=== PATIENT | female | born 1935 | race Caucasian/White ===

== ENCOUNTER 2019-05-08 21:23 | Inpatient (IN) | payer MEDICARE ==
[~2019-05-08] VITALS: Ht 147.3 cm; Wt 49.4 kg
--- NOTE | 2019-05-08 21:45 | NUR ---
PT BIB [facility] WITH A C/O AMS. PT IS AA&O BUT REFUSING CARE. PT'S FAMILY STATED THAT THIS IS UNUSUAL FOR THE PT. PT HAS A RUC PORT. ACCESSED BY ED, RN. NO BLOOD RETURN. LAB AT BEDSIDE FOR BLOOD DRAW. PT IS ON THE MONITOR AND CONTINUOUS PULSE OX.
[2019-05-08] MEDS ORDERED: ONE A DAY VITAMIN PO (21:46)
[2019-05-08] MEDS ORDERED: MINO100T PO (21:46)
[2019-05-08] MEDS ORDERED: FERR325T23 PO (21:46)
[2019-05-08] MEDS ORDERED: MAGN400T8 PO (21:46)
[2019-05-08] MEDS ORDERED: METF500S7 PO (21:46)
[2019-05-08] MEDS ORDERED: CIPR-262 PO (21:54)
[2019-05-08] MEDS ORDERED: PREG100C PO (21:54)
[2019-05-08] MEDS ORDERED: MYRBETRIQ PO (21:54)
[2019-05-08] MEDS ORDERED: DIPH-916 PO (21:54)
[2019-05-08] MEDS ORDERED: ASPI81TA44 PO (21:54)
[2019-05-08] MEDS ORDERED: VITAMIN D2 PO (21:54)
[2019-05-08] MEDS ORDERED: BISA-79 PO (21:54)
[2019-05-08] MEDS ORDERED: HYDR-4384 PO (21:54)
[2019-05-08 22:19] LABS: BASOPHILS # (AUTO) 0.2 /CMM (0.0-0.2); BASOPHILS % (AUTO) 0.8 % (0.0-2.0); EOSINOPHILS % (AUTO) 0.7 % (0.0-6.0); HEMATOCRIT 41 % (33-45); HEMOGLOBIN 12.7 g/dL (11.5-14.8); LYMPHOCYTES # (AUTO) 16.5 /CMM (0.8-4.8); MEAN CORPUSCULAR HGB CONC 31 g/dl (31.0-36.0); MEAN CORPUSCULAR VOLUME 88 fL (82-100); MONOCYTES # (AUTO) 0.9 /CMM (0.1-1.30); MONOCYTES % (AUTO) 3.4 % (2.0-12.0); NEUTROPHILS # (AUTO) 10.1 /CMM (1.8-8.9); NEUTROPHILS % (AUTO) 36.1 % (43.0-81.0); PLATELET COUNT (AUTO) 278 /CMM (150-450); RED BLOOD CELL COUNT(AUTO) 4.61 MIL/uL (4.0-5.2)
--- NOTE | 2019-05-08 22:26 | NUR ---
PT LEFT FOR CT VIA GURNEY.
[2019-05-08] MEDS ORDERED: LORAZEPAM INJ 2 MG/ML VIAL IV ONE (22:30)
[2019-05-08 22:44] LABS: CALCIUM, SERUM 9.8 mg/dL (8.5-10.1); CARBON DIOXIDE 31 mmol/L (21-32); CHLORIDE 104 mmol/L (98-107); CREATININE 0.9 mg/dL (0.6-1.3); GLUCOSE 135 mg/dL (74-106); POTASSIUM 5.2 mmol/L (3.5-5.1); SODIUM SERUM 142 mmol/L (136-145); UREA NITROGEN, BLOOD 15 mg/dL (7-18)
--- NOTE | 2019-05-08 22:45 | NUR ---
PT RETURNED FROM CT.
[2019-05-08 22:47] LABS: ALANINE AMINOTRANSFERASE 9 U/L (12-78); ALBUMIN 2.9 g/dL (3.4-5.0); ALKALINE PHOSPHATASE 125 U/L (46-116); ASPARTATE AMINOTRANSFERASE 14 U/L (15-37); BILIRUBIN,DIRECT 0.1 mg/dL (0.0-0.2); BILIRUBIN,TOTAL 0.4 mg/dL (0.2-1.0); TOTAL PROTEIN, SERUM 6.6 g/dL (6.4-8.2)
[2019-05-08] MEDS ORDERED: PIPERACILLIN /TAZOBACTAM 3.375 G in IV D5W 50 ML IV ONE (23:00)
[2019-05-08] MEDS ORDERED: VANCOMYCIN 1 GM in IV D5W 250 ML IV ONE (23:00)
--- NOTE | 2019-05-08 23:00 | NUR ---
IN AND OUT CATH DONE AT THE BEDSIDE.
[2019-05-08] MEDS ORDERED: VANCOMYCIN 1 GM VIAL ONE (23:32)
[2019-05-08] MEDS ORDERED: PIPERACILLIN /TAZOBACTAM 3.375 G VIAL IV ONE (23:32)
[2019-05-08 23:41] LABS: APPEARANCE,URINE Cloudy (CLEAR); BILIRUBIN,URINE Negative (NEGATIVE); BLOOD, URINE Small Ery/uL (NEGATIVE); COLOR,URINE Yellow (YELLOW); KETONES,URINE Negative (NEGATIVE); LEUKOCYTE ESTERASE ,URINE Large (NEGATIVE); NITRITE, URINE Negative (NEGATIVE); PH,URINE 7.5 (5.0-8.0); PROTEIN,URINE Trace mg/dl (NEGATIVE); UGLUCOSE Negative (NEGATIVE); UROBILINOGEN,URINE 0.2 EU/dL (0.2)
[2019-05-08 23:51] LABS: BACTERIA,URINE 3+ /HPF (None Seen); SQUAMOUS EPITHELIAL CELL,UR Few /HPF (None Seen); WBC,URINE 81-100 /HPF (0-3)
--- NOTE | 2019-05-09 00:25 | NUR ---
VANCO WAS ACCIDENTALLY DROPPED AND THE MEDICATION GLASS BOTTLE BROKE. NO ABLE TO USE MEDICATION. VANCO 1GM WASTED AND NEW VANCO 1GM PULLED.
[2019-05-09] MEDS ORDERED: VANCOMYCIN 1 GM VIAL ONE (00:26)
[2019-05-09] MEDS ORDERED: IV NS 0.9% 1,000 ML IV PRN (00:29)
[2019-05-09] MEDS ORDERED: DEXTROSE 50%-WATER 50 ML DISP.SYRIN IV PRN (00:30)
[2019-05-09] MEDS ORDERED: ONDANSETRON HCL/PF 4 MG/2 ML VIAL IVP PRN (00:30)
[2019-05-09] MEDS ORDERED: ACETAMINOPHEN 325 MG TABLET PO PRN (00:30)
[2019-05-09] MEDS ORDERED: MAGNESIUM HYDROXIDE 30 ML UDC PO PRN (00:30)
[2019-05-09] MEDS ORDERED: Z GUARD REMEDY 2 OZ OINT TP PRN (00:30)
[2019-05-09] MEDS ORDERED: MAG HYDROX/AL HYDROX/SIMETH 30 ML UDC PO PRN (00:30)
--- NOTE | 2019-05-09 00:36 | NUR ---
CALLED NURSING JUNIOR ADMINISTRATIVE ASSISTANT FOR M/S BED.
--- NOTE | 2019-05-09 00:59 | NUR ---
PT IS MS GOING TO 328-1
--- NOTE | 2019-05-09 01:00 | NUR ---
CALLING REPORT TO ALEX WRIGHT
--- NOTE | 2019-05-09 01:15 | NUR ---
MS ALARM FIELD TECHNICIAN INITIAL NOTES ADMIT PT FROM ER VIA GURNEY ACCOMPANIED BY ER NURSE AND TECH. PT IS AWAKE AND ALERT , LUXEMBOURGISH SPEAKING BUT UNDERSTOOD AND SPEAK SOME ARMENIAN. STILL WITH VANCOMYCIN INFUSING , NO SIGNS OF ANY ADVERSE REACTION NOTED. DENIES ANY PAIN OR ANY DISCOMFORT. INFORMATION PROVIDED BY HER DAUGHTER AUDELIA. PER HER DAUGHTER THEY JUST NOTICED GET CONFUSED AND DEHYDRATED. DX OF UTI. ASSESSMENT DONE AND RECORDED.ORIENTED PT WHERE SHE AT AND HOW TO USE THE CALL LIGHT SYSTEM. BED IN LOW AND LOCK IN POSITION WITH SIDE RAILS X2 UP AND BED ALARM SET FOR PT SAFETY. WILL CONTINUE MONITORING. DAUGHTER AT THE BEDSIDE FOR A WHILE.
[2019-05-09 01:18] VITALS: BP 138/99
[2019-05-09 02:05] VITALS: BP 138/99
--- NOTE | 2019-05-09 02:23 | NUR ---
MS MARLY NOTES BENADRYL PO GIVEN TO RELIEVED PT ITCHINESS. SAFETY PRECAUTION IMPLEMENTED. EDUCATE DAUGHTER AND PT REGARDING POSSIBLE SIDE EFFECT AND DAUGHTER UNDERSTOOD WELL. WILL CONTINUE MONITORING. PLACE CALL LIGHT AT REACH.
[2019-05-09] MEDS ORDERED: CEFTRIAXONE 1 G VIAL ONE (02:26)
[2019-05-09] MEDS ORDERED: diphenhydrAMINE HCL 25 MG CAPSULE PO PRN (02:30)
[2019-05-09] MEDS: CEFTRIAXONE 1 G in IV D5W 50 ML IV SCH (03:03)
--- NOTE | 2019-05-09 07:55 | NUR ---
ms security incident response specialist closing notes pt sleeping comfortably in bed without any distress noted. IVF still infusing , no redness noted. slept well after benadryl given and itchy relieved as well. no signs of any distress noted. kept her warm and comfortable at all times. bed alarm set for safety. place call light at reach. endorse to am nurse Rosales for continuity of care.
[2019-05-09 08:00] VITALS: BP 150/80
[2019-05-09] MEDS: BLOOD SUGAR DIAGNOSTIC 1 EACH STRIP IN SCH ×4 (08:27→21:56)
[2019-05-09] MEDS ORDERED: Medication Not On Formulary EA ([Myrbetriq] 50 MG) PO SCH (09:00)
--- NOTE | 2019-05-09 10:28 | NUR ---
WOUND CARE CONSULT: PT FOLLOWED BY PLASTIC SURGERY TEAM FOR WOUND CARE. DEFER TO SURGICAL TEAM FOR WOUND TREATMENT PLAN. DISCUSSED SKIN PROTECTION WITH NURSING STAFF. WILL SEE PRN. CURRENT KEELY SCORE IS 15.
[2019-05-09] MEDS: FERROUS SULFATE (325 MG) 325 MG/TAB TABLET PO SCH ×2 (10:30→19:04)
[2019-05-09] MEDS: PREGABALIN 100 MG CAPSULE PO SCH ×2 (10:30→19:04)
[2019-05-09] MEDS: MAGNESIUM OXIDE 400 MG TABLET PO SCH (10:30)
[2019-05-09] MEDS: MULTIVITAMINS,THERAGRAN 1 UDTAB TABLET PO SCH (10:30)
[2019-05-09] MEDS: ASPIRIN EC 81 MG TABLET.DR PO SCH (10:32)
[2019-05-09] MEDS: IV D5/0.45 NACL 1,000 ML IV PRN (12:29)
[2019-05-09 16:00] VITALS: BP 126/64
--- NOTE | 2019-05-09 18:00 | NUR ---
oziel hunter ehs specialist here and debridement of thigh and sacral areas.pt. tolerated well.dr. muniz changed iv to dextrose as pt. was not eating in am.also texted md and made him aware of elevated potassium from 05/08/19.states he will check it out.family at bedside most of day.iv site rt. chest functioning well.
--- NOTE | 2019-05-09 19:45 | NUR ---
ms igor initial notes pt awake and alert lying in bed without any distress noted. she's watching TV at the same time talking to her son. IVF still infusing. kept her warm and comfortable at all times . will continue monitoring. place call light at reach.
[2019-05-09 20:00] VITALS: BP 118/64
[2019-05-09] MEDS ORDERED: SODIUM POLYSTYRENE SULFONATE 15 G/60 ML BOTTLE PO ONE (20:00)
--- NOTE | 2019-05-09 21:50 | NUR ---
ms financial reporting manager notes norco tablet po given as ordered per patient requested. will continue monitoring.
[2019-05-09] MEDS: HYDROCODONE/APAP 5/325MG 1 EACH TABLET PO PRN (21:56)
[2019-05-09] MEDS: INSULIN REGULAR, HUMAN 100 UNIT/ML 3 ML VIAL SQ PRN (22:03)
[2019-05-10] MEDS: IV D5/0.45 NACL 1,000 ML IV PRN ×2 (02:10→23:00)
[2019-05-10] MEDS: CEFTRIAXONE 1 G in IV D5W 50 ML IV SCH (02:35)
[2019-05-10] MEDS: BLOOD SUGAR DIAGNOSTIC 1 EACH STRIP IN SCH ×4 (07:00→22:27)
[2019-05-10] MEDS: INSULIN REGULAR, HUMAN 100 UNIT/ML 3 ML VIAL SQ PRN ×4 (07:03→22:43)
--- NOTE | 2019-05-10 07:33 | NUR ---
MS RUBBER COMPOUNDER MIXER CLOSING NOTES PT AWAKE AND ALERT MORNING CARE DONE WELL WOUND CARE TREATMENT. BLOOD SUGAR 98 NO INSULIN DUE AT THIS TIME. NO SIGNS OF ANY DISCOMFORT NOTED . ALL DUE MEDS GIVEN AND ALL NEEDS MET KEPT HER WARM AND COMFORTABLE AT ALL TIMES. ENDORSE TO AM NURSE SANTO FOR CONTINUITY OF CARE. PLACE CALL LIGHT AT REACH.
[2019-05-10 07:40] LABS: BASOPHILS # (AUTO) 0.1 /CMM (0.0-0.2); BASOPHILS % (AUTO) 0.2 % (0.0-2.0); EOSINOPHILS % (AUTO) 0.8 % (0.0-6.0); HEMATOCRIT 39 % (33-45); HEMOGLOBIN 12.1 g/dL (11.5-14.8); LYMPHOCYTES # (AUTO) 19.8 /CMM (0.8-4.8); LYMPHOCYTES % (AUTO) 69.8 % (20.0-44.0); MEAN CORPUSCULAR HGB CONC 31 g/dl (31.0-36.0); MEAN CORPUSCULAR VOLUME 88 fL (82-100); MONOCYTES # (AUTO) 1.1 /CMM (0.1-1.30); MONOCYTES % (AUTO) 3.9 % (2.0-12.0); NEUTROPHILS # (AUTO) 7.2 /CMM (1.8-8.9); NEUTROPHILS % (AUTO) 25.3 % (43.0-81.0); PLATELET COUNT (AUTO) 252 /CMM (150-450); RED BLOOD CELL COUNT(AUTO) 4.41 MIL/uL (4.0-5.2); WHITE BLOOD COUNT (AUTO) 28.4 K/uL (4.3-11.0)
[2019-05-10 07:44] LABS: CALCIUM, SERUM 9.5 mg/dL (8.5-10.1); CREATININE 0.7 mg/dL (0.6-1.3); MAGNESIUM 1.4 mg/dL (1.8-2.4); PHOSPHORUS 3.5 mg/dL (2.5-4.9); POTASSIUM 4.3 mmol/L (3.5-5.1)
--- NOTE | 2019-05-10 07:45 | NUR ---
MS/RN Opening note Patient received resting in bed, A/O x2 showing no signs of acute distress or SOB, saturating 95% on RA. IV line is clean and intact. No complaints of pain at this time. Patient is on diaper and bedrest. Bed is in lowest position, side rails x3 in upright position, fall and aspiration precautions enforced. Will continue with plan of care.
[2019-05-10 07:54] LABS: THYROID STIMULATING HORMONE 0.323 uIU/mL (0.358-3.74)
[2019-05-10 08:46] VITALS: BP 147/77
[2019-05-10] MEDS: FERROUS SULFATE (325 MG) 325 MG/TAB TABLET PO SCH ×2 (09:01→17:25)
[2019-05-10] MEDS: ASPIRIN EC 81 MG TABLET.DR PO SCH (09:01)
[2019-05-10] MEDS: MAGNESIUM OXIDE 400 MG TABLET PO SCH (09:01)
[2019-05-10] MEDS: MULTIVITAMINS,THERAGRAN 1 UDTAB TABLET PO SCH (09:01)
[2019-05-10] MEDS: PREGABALIN 100 MG CAPSULE PO SCH ×2 (09:01→17:25)
[2019-05-10] MEDS: Magnesium 1GM/D5W 100ML PREMIX 100 ML IV SCH ×4 (10:28→13:49)
--- NOTE | 2019-05-10 14:00 | NUR ---
MS/RN note S/B PT, patient ok to ambuate to bathroom with assistance. Wound dressing changed with Ashley today as ordered.
[2019-05-10 15:58] VITALS: BP 93/49
[2019-05-10] MEDS: HYDROCODONE/APAP 5/325MG 1 EACH TABLET PO PRN (18:06)
[2019-05-10 20:00] VITALS: BP 101/42
--- NOTE | 2019-05-10 20:00 | NUR ---
MS LUKE INITIAL NOTES RECEIVED REPORT FROM AM NURSE AND SEEN PT IN BED AWAKE AND ALERT WATCHING TV AT THIS TIME.
--- NOTE | 2019-05-10 20:29 | NUR ---
MS/RN Closing note Patient received is in bed, A/O x2 showing no signs of acute distress or SOB, saturating 95% on RA. IV line is clean and intact. No complaints of pain at this time. Patient has bedside commode and can ambulate with assistance. All patient needs met, all due meds given, patient kept clean and dry throughout shift. Bed is in lowest position, side rails x3 in upright position, fall and aspiration precautions enforced. Will endorse to sole leveler machine.
--- NOTE | 2019-05-11 | NUR ---
ms awning maker and installer notes pt sleeping comfortably in bed without any distress noted. IVF still infusing.
[2019-05-11] MEDS: CEFTRIAXONE 1 G in IV D5W 50 ML IV SCH (02:14)
[2019-05-11] MEDS: BLOOD SUGAR DIAGNOSTIC 1 EACH STRIP IN SCH ×4 (07:30→21:28)
--- NOTE | 2019-05-11 07:47 | NUR ---
ms cylindrical mixer closing notes pt back to rest after morning care done. stable hema the night and slept well. no signs of any distress noted. all due meds given and all needs met. kept her warm and comfortable at all times. place call light at reach. endorse to am nurse for continuity of care.
--- NOTE | 2019-05-11 07:48 | NUR ---
MS/RN Opening note Patient received resting in bed, A/O x2 showing no signs of acute distress or SOB, saturating 95% on RA. Portacath noted on the right upper chest running D5 1/2@75ml/hr. No complaints of pain at this time. Patient is able to use the bedside commode with assistance. Bed is in lowest position, side rails x3 in upright position, fall and aspiration precautions enforced. Will continue with plan of care.
[2019-05-11] MEDS: PREGABALIN 100 MG CAPSULE PO SCH ×2 (09:03→17:36)
[2019-05-11] MEDS: MULTIVITAMINS,THERAGRAN 1 UDTAB TABLET PO SCH (09:03)
[2019-05-11] MEDS: MAGNESIUM OXIDE 400 MG TABLET PO SCH (09:03)
[2019-05-11] MEDS: ASPIRIN EC 81 MG TABLET.DR PO SCH (09:03)
[2019-05-11] MEDS: FERROUS SULFATE (325 MG) 325 MG/TAB TABLET PO SCH ×2 (09:03→17:36)
[2019-05-11] MEDS: INSULIN REGULAR, HUMAN 100 UNIT/ML 3 ML VIAL SQ PRN ×2 (09:08→17:45)
[2019-05-11 10:02] VITALS: BP 131/69
[2019-05-11] MEDS: HYDROCODONE/APAP 5/325MG 1 EACH TABLET PO PRN (10:57)
--- NOTE | 2019-05-11 12:00 | NUR ---
MS/RN BLOOD SUGAR 114. NO COVERAGE AT THIS TIME
[2019-05-11 15:13] LABS: CALCIUM, SERUM 9.3 mg/dL (8.5-10.1); CREATININE 0.9 mg/dL (0.6-1.3); MAGNESIUM 2.1 mg/dL (1.8-2.4); POTASSIUM 4.5 mmol/L (3.5-5.1)
[2019-05-11 16:28] VITALS: BP 118/80
--- NOTE | 2019-05-11 19:20 | NUR ---
MS RN OPENING NOTES: RECEIVED PATIENT RESTING IN BED, A/O X4. NO COMPLAIN OF PAIN. NOT IN RESPIRATORY DISTRESS. CALL LIGHT WITHIN REACH. BED ALARM ON. BED IN LOWEST AND LOCKED POSITION. BILATERAL HEELS OFFLOADED WITH PILLOW. HOB ELEVATED AT 30 DEGREES.
[2019-05-11 20:00] VITALS: BP 127/72
--- NOTE | 2019-05-11 20:32 | NUR ---
MS/RN Closing note Patient received resting in bed, A/O x2 showing no signs of acute distress or SOB, saturating 95% on RA. Portacath noted on the right upper chest running D5 1/2@75ml/hr. No complaints of pain at this time. Patient is able to use the bedside commode with assistance. All patient needs met, all due meds given. Bed is in lowest position, side rails x3 in upright position, fall and aspiration precautions enforced. Will continue with plan of care.
[2019-05-11 20:34] VITALS: BP 127/72
[2019-05-11 21:09] LABS: BASOPHILS # (AUTO) 0.1 /CMM (0.0-0.2); BASOPHILS % (AUTO) 0.3 % (0.0-2.0); EOSINOPHILS % (AUTO) 1.2 % (0.0-6.0); HEMATOCRIT 37 % (33-45); HEMOGLOBIN 11.4 g/dL (11.5-14.8); LYMPHOCYTES # (AUTO) 20.5 /CMM (0.8-4.8); LYMPHOCYTES % (AUTO) 67.3 % (20.0-44.0); MEAN CORPUSCULAR HGB CONC 31 g/dl (31.0-36.0); MEAN CORPUSCULAR VOLUME 88 fL (82-100); MONOCYTES # (AUTO) 0.9 /CMM (0.1-1.30); MONOCYTES % (AUTO) 3.1 % (2.0-12.0); NEUTROPHILS # (AUTO) 8.5 /CMM (1.8-8.9); NEUTROPHILS % (AUTO) 28.1 % (43.0-81.0); PLATELET COUNT (AUTO) 236 /CMM (150-450); RED BLOOD CELL COUNT(AUTO) 4.18 MIL/uL (4.0-5.2)
[2019-05-11 21:12] LABS: WHITE BLOOD COUNT (AUTO) 30.4 K/uL (4.3-11.0)
--- NOTE | 2019-05-11 21:29 | NUR ---
BLOOD SUGAR FINGERSTICK IS 94.NO INSULIN GIVEN.
--- NOTE | 2019-05-11 21:31 | NUR ---
RECEIVED A CRITICAL CALL FROM LAB FOR A CRITICAL RESULTS OF WBC=30.4, KENJI TRACEY AWARE, SHE SAID THAT KEYBOARDING CLERK BREN ALREADY PAGED BY OTHER RN, WAITING FOR THE RESPONSE. SON OF THE PATIENT AT THE BEDSIDE.
[2019-05-11 21:40] LABS: LYMPHOCYTES % (MANUAL) 70 % (16-48); MONOCYTES % (MANUAL) 1 % (0-11.0); NEUTROPHILS % (MANUAL) 29 (42-76)
--- NOTE | 2019-05-11 22:00 | NUR ---
HERMES CORREIA CAME AND INFORMED THE CRITICAL RESULTS OF WBC, NO ORDERS MADE.
[2019-05-12] MEDS: CEFTRIAXONE 1 G in IV D5W 50 ML IV SCH (02:12)
--- NOTE | 2019-05-12 04:31 | NUR ---
PATIENT REFUSED DRESSINGS CHANGED ON THE LEFT HIP AND LEFT THIGH AT THIS TIME. PATIENT WANTS IT AFTER BREAKFAST, SUPPLIES- NS FLUSHES, GAUZE, AND IODOFORM PACKING STRIPS, AND MEPILEX DRESSING ARE GATHERED AT THE BEDSIDE. WILL ENDORSE TO THE NEXT SHIFT RN.
--- NOTE | 2019-05-12 05:46 | NUR ---
MS RN CLOSING NOTES: PATIENT IN BED. ASLEEP, EASILY AROUSABLE. VITALS STABLE. PATIENT'S SON CAME TO VISIT LAST NIGHT. PATIENT IS MORE ALERT AND ORIENTED ACCORDING TO THE SON. RESTED THROUGHOUT THE NIGHT. TYLENOL GIVEN PO FOR RIGHT SHOULDER DISCOMFORT. ENCOURAGED TO FREQ SELF REPOSITION IN BED. CALL LIGHT WITHIN REACH. BED ALARM ON. BED IN LOWEST AND LOCKED POSITION. HEELS OFFLOADED. HOB ELEVATED. AFEBRILE. LEFT HIP AND LEFT THIGH DRESSINGS WILL BE CHANGED AFTER BREAKFAST TODAY PER PATIENT'S REQUEST, SUPPLIES AT THE BEDSIDE, WILL ENDORSE.
[2019-05-12] MEDS: INSULIN REGULAR, HUMAN 100 UNIT/ML 3 ML VIAL SQ PRN ×2 (06:53→18:48)
[2019-05-12 08:00] VITALS: BP 107/60
--- NOTE | 2019-05-12 08:00 | NUR ---
MS RN OPENING NOTES: RECEIVED PATIENT RESTING IN BED, A/O X4. NO COMPLAIN OF PAIN. NOT IN RESPIRATORY DISTRESS. WITH IVF D51/2 NS AT 75 ML/HR INFUSING WELL. CALL LIGHT WITHIN REACH. BED ALARM ON. BED IN LOWEST AND LOCKED POSITION. BILATERAL HEELS OFFLOADED WITH PILLOW. HOB ELEVATED AT 30 DEGREES.
[2019-05-12 08:06] LABS: IMMUNOGLOBULIN A, SERUM 66 mg/dL (64-422); IMMUNOGLOBULIN G, SERUM 684 mg/dL (700-1600); IMMUNOGLOBULIN M, SERUM 13 mg/dL (26-217)
[2019-05-12] MEDS: BLOOD SUGAR DIAGNOSTIC 1 EACH STRIP IN SCH ×4 (08:51→21:40)
[2019-05-12] MEDS ORDERED: PIPERACILLIN /TAZOBACTAM 3.375 G in IV D5W 50 ML IV ONE ×2 (09:00→11:30)
[2019-05-12] MEDS: MAGNESIUM OXIDE 400 MG TABLET PO SCH (09:09)
[2019-05-12] MEDS: ASPIRIN EC 81 MG TABLET.DR PO SCH (09:09)
[2019-05-12] MEDS: PREGABALIN 100 MG CAPSULE PO SCH ×2 (09:09→18:46)
[2019-05-12] MEDS: FERROUS SULFATE (325 MG) 325 MG/TAB TABLET PO SCH ×2 (09:09→18:46)
[2019-05-12] MEDS: MULTIVITAMINS,THERAGRAN 1 UDTAB TABLET PO SCH (09:09)
[2019-05-12] MEDS: IV D5/0.45 NACL 1,000 ML IV PRN (12:16)
--- NOTE | 2019-05-12 12:52 | NUR ---
BS 135=REFUSED LUNCH AND INSULIN
[2019-05-12] MEDS ORDERED: PIPERACILLIN /TAZOBACTAM 3.375 G in IV D5W 100 ML IV SCH (13:00)
[2019-05-12] MEDS: HYDROCODONE/APAP 5/325MG 1 EACH TABLET PO PRN (14:22)
[2019-05-12 16:00] VITALS: BP 116/57
[2019-05-12] MEDS: PIPERACILLIN /TAZOBACTAM 3.375 G in IV D5W 100 ML IV SCH (18:45)
[2019-05-12 20:00] VITALS: BP 118/65
[2019-05-13] MEDS: PIPERACILLIN /TAZOBACTAM 3.375 G in IV D5W 100 ML IV SCH ×3 (00:55→17:11)
--- NOTE | 2019-05-13 06:38 | NUR ---
MS RN NOTES AWAKE & RESPONSIVE. NOT IN ANY DISTRESS. NO SOB NOTED. DENIES ANY PAIN OR DISCOMFORT AT THIS TIME. WITH IVF INFUSING WELL. AM CARE DONE. MONITORED ACCORDINGLY. CALL LIGHT WITHIN REACH. BED IN LOWEST POSITION. SR UP X 2 WITH BED ALARM ON FOR SAFETY. WILL ENDORSE TO NEXT SHIFT.
[2019-05-13] MEDS: BLOOD SUGAR DIAGNOSTIC 1 EACH STRIP IN SCH ×4 (06:56→22:03)
--- NOTE | 2019-05-13 07:30 | NUR ---
MS/RN Patient received Patient received from ammonia refrigeration worker. A/O X3, vital signs within normal range for patient, appears in no distress or discomfort at this time. IV fluids continue to infuse via portacth. All questions and concerns addressed. Will continue to monitor and ensure safety.
[2019-05-13 08:00] VITALS: BP 136/72
[2019-05-13 08:14] LABS: BASOPHILS # (AUTO) 0.3 /CMM (0.0-0.2); BASOPHILS % (AUTO) 1.2 % (0.0-2.0); HEMATOCRIT 35 % (33-45); HEMOGLOBIN 10.9 g/dL (11.5-14.8); LYMPHOCYTES # (AUTO) 16.3 /CMM (0.8-4.8); LYMPHOCYTES % (AUTO) 62.8 % (20.0-44.0); MEAN CORPUSCULAR HGB CONC 31 g/dl (31.0-36.0); MEAN CORPUSCULAR VOLUME 88 fL (82-100); MONOCYTES # (AUTO) 0.9 /CMM (0.1-1.30); MONOCYTES % (AUTO) 3.5 % (2.0-12.0); NEUTROPHILS # (AUTO) 8.2 /CMM (1.8-8.9); NEUTROPHILS % (AUTO) 31.5 % (43.0-81.0); PLATELET COUNT (AUTO) 197 /CMM (150-450); RED BLOOD CELL COUNT(AUTO) 3.99 MIL/uL (4.0-5.2); WHITE BLOOD COUNT (AUTO) 25.9 K/uL (4.3-11.0)
[2019-05-13 08:25] LABS: CALCIUM, SERUM 9.5 mg/dL (8.5-10.1); CREATININE 0.8 mg/dL (0.6-1.3); POTASSIUM 4.4 mmol/L (3.5-5.1)
[2019-05-13] MEDS: PREGABALIN 100 MG CAPSULE PO SCH ×2 (08:31→17:10)
[2019-05-13] MEDS: MAGNESIUM OXIDE 400 MG TABLET PO SCH (08:31)
[2019-05-13] MEDS: FERROUS SULFATE (325 MG) 325 MG/TAB TABLET PO SCH ×2 (08:31→17:11)
[2019-05-13] MEDS: ASPIRIN EC 81 MG TABLET.DR PO SCH (08:32)
[2019-05-13] MEDS: MULTIVITAMINS,THERAGRAN 1 UDTAB TABLET PO SCH (08:32)
[2019-05-13] MEDS: HYDROCODONE/APAP 5/325MG 1 EACH TABLET PO PRN ×2 (09:01→17:11)
--- NOTE | 2019-05-13 09:04 | NUR ---
MS/RN Pain Complaining of generalized body pain and requesting norco. One tablet administered as ordered.
--- NOTE | 2019-05-13 10:30 | NUR ---
MS/RN Labs Morning labs reviewed: WBC 25.9 Although value elevated, continues to trend down.
[2019-05-13] MEDS: INSULIN REGULAR, HUMAN 100 UNIT/ML 3 ML VIAL SQ PRN (12:13)
[2019-05-13 16:00] VITALS: BP 101/44
--- NOTE | 2019-05-13 17:10 | NUR ---
MS/RN Pain Complaining of generalized pain 11/01. [place] one tablet administered as ordered.
--- NOTE | 2019-05-13 18:11 | NUR ---
MS/RN End note Patient remains in stable condition. IVAB infusing via portacath to right chest wall. No further complaints of pain. Call light within reach, will endorse to maintenance supervisor 2nd shift.
[2019-05-13 20:00] VITALS: BP 124/75
--- NOTE | 2019-05-13 22:00 | NUR ---
MS RN NOTES BS CHECKED 155. PT REFUSED INSULIN COVERAGE AT THIS TIME. EXPLAINED TO PT IMPORTANCE OF INSULIN IN HER POC BUT PT STILL REFUSED. WILL CONTINUE TO MONITOR.
[2019-05-14] MEDS: PIPERACILLIN /TAZOBACTAM 3.375 G in IV D5W 100 ML IV SCH ×2 (01:15→08:40)
[2019-05-14] MEDS: BLOOD SUGAR DIAGNOSTIC 1 EACH STRIP IN SCH ×2 (06:22→12:03)
--- NOTE | 2019-05-14 06:49 | NUR ---
MS RN NOTES AWAKE & RESPONSIVE. NOT IN ANY DISTRESS. NO SOB NOTED. DENIES ANY PAIN OR DISCOMFORT AT THIS TIME. WITH IVF INFUSING WELL. AM CARE DONE. MONITORED ACCORDINGLY. CALL LIGHT WITHIN REACH. BED IN LOWEST POSITION. SR UP X 3 WITH BED ALARM ON FOR SAFETY. WILL ENDORSE TO NEXT SHIFT.
--- NOTE | 2019-05-14 07:26 | NUR ---
MS ALEX NOTES UNABLE TO TAKE PICTURES LAST NIGHT. PICTURES WILL BE TAKEN BY KRISTINE JOHNSON. ENDORSED ACCORDINGLY.
--- NOTE | 2019-05-14 07:30 | NUR ---
MS RN NOTES RECEIVED PATIENT IN BED RESTING COMFORTABLY IN MODERATE HIGH BACK REST, A/O X3. NO SIGNS OF DISTRESS NOTED AT THIS TIME. NO SOB NOTED. DENIES ANY PAIN OR DISCOMFORT AT THIS TIME. WITH IVF INFUSING WELL. SAFETY MEASURES IN PLACE, CALL LIGHT WITHIN REACH. BED IN LOWEST POSITION. SR UP X 3 WITH BED ALARM ON FOR SAFETY. WILL CONTINUE TO MONITOR.
[2019-05-14 07:55] LABS: BASOPHILS % (AUTO) 0.1 % (0.0-2.0); EOSINOPHILS % (AUTO) 1.2 % (0.0-6.0); HEMATOCRIT 39 % (33-45); HEMOGLOBIN 12.2 g/dL (11.5-14.8); LYMPHOCYTES # (AUTO) 16.1 /CMM (0.8-4.8); LYMPHOCYTES % (AUTO) 66.7 % (20.0-44.0); MEAN CORPUSCULAR HGB CONC 31 g/dl (31.0-36.0); MEAN CORPUSCULAR VOLUME 88 fL (82-100); MONOCYTES # (AUTO) 0.7 /CMM (0.1-1.30); MONOCYTES % (AUTO) 2.8 % (2.0-12.0); NEUTROPHILS # (AUTO) 7.1 /CMM (1.8-8.9); NEUTROPHILS % (AUTO) 29.2 % (43.0-81.0); PLATELET COUNT (AUTO) 245 /CMM (150-450); RED BLOOD CELL COUNT(AUTO) 4.44 MIL/uL (4.0-5.2); WHITE BLOOD COUNT (AUTO) 24.2 K/uL (4.3-11.0)
[2019-05-14 07:59] LABS: CALCIUM, SERUM 9.6 mg/dL (8.5-10.1); CREATININE 0.9 mg/dL (0.6-1.3); POTASSIUM 4.1 mmol/L (3.5-5.1)
[2019-05-14 08:00] VITALS: BP 127/59
[2019-05-14] MEDS: FERROUS SULFATE (325 MG) 325 MG/TAB TABLET PO SCH (08:34)
[2019-05-14] MEDS: MULTIVITAMINS,THERAGRAN 1 UDTAB TABLET PO SCH (08:35)
[2019-05-14] MEDS: MAGNESIUM OXIDE 400 MG TABLET PO SCH (08:35)
[2019-05-14] MEDS: ASPIRIN EC 81 MG TABLET.DR PO SCH (08:35)
[2019-05-14] MEDS: PREGABALIN 100 MG CAPSULE PO SCH (08:35)
[2019-05-14] MEDS ORDERED: NITR100C PO (08:54)
[2019-05-14] MEDS ORDERED: ERGOCALCIFEROL (VITAMIN D 2) 50,000 UNIT CAPSULE PO SCH (09:00)
[2019-05-14 09:36] LABS: EOSINOPHILS % (MANUAL) 1 % (0-4); LYMPHOCYTES % (MANUAL) 64 % (16-48); MONOCYTES % (MANUAL) 2 % (0-11.0); NEUTROPHILS % (MANUAL) 33 (42-76)
[2019-05-14] MEDS: HYDROCODONE/APAP 5/325MG 1 EACH TABLET PO PRN (11:54)
[2019-05-14] MEDS: INSULIN REGULAR, HUMAN 100 UNIT/ML 3 ML VIAL SQ PRN (12:10)
[2019-05-14] MEDS ORDERED: Z GUARD REMEDY 2 OZ OINT TP SCH (13:42)
--- NOTE | 2019-05-14 15:30 | NUR ---
RN DISCHARGED NOTES PATIENT DISCHARGED IN STABLE CONDITION. A/O X4. ABLE TO MAKE NEEDS KNOWN. V/S TAKEN, STABLE AND RECORDED. PATIENT HAS PORT A CATH IN PLACE. REFUSED SKIN ASSESSMENT/PICTURES. NAME ARM BAND REMOVED. ALL BELONGINGS SIGNS AND CHECKED. HEALTH TEACHINGS/DISCHARGED INSTRUCTIONS GIVEN AND VERBALIZED UNDERSTANDING. PATIENT LEFT UNIT WITH CAREGIVER ACCOMPANIED BY HOSPITAL STAFF VIA WHEELCHAIR. NO SIGNS OF DISTRESS NOTED. CHARGE NURSE AWARE OF DISCHARGED.
== END 2019-05-14 15:00 | disposition home or self-care (01) | DRG 853 ==
LOC: EDBD 21:26 → ER 21:26 → MED 05-09 01:03
PROVIDERS: ADMIT Internal Medicine; ATTEND Family Medicine
PROC: 0KBP0ZZ Excision of Left Hip Muscle, Open Approach (ICD-10-PCS; principal; 2019-05-09)
PROC: 0KBT0ZZ Excision of Left Lower Leg Muscle, Open Approach (ICD-10-PCS; 2019-05-09)
DX: A41.9 Sepsis, unspecified organism (principal); G93.41 Metabolic encephalopathy; L03.116 Cellulitis of left lower limb; N39.0 Urinary tract infection, site not specified; C91.10 Chronic lymphocytic leukemia of B-cell type not having achieved remission; F03.90 Unspecified dementia, unspecified severity, without behavioral disturbance, psychotic disturbance, mood disturbance, and anxiety; I10 Essential (primary) hypertension; G62.9 Polyneuropathy, unspecified; Z87.440 Personal history of urinary (tract) infections; Z79.82 Long term (current) use of aspirin; S71.002A Unspecified open wound, left hip, initial encounter; S71.102A Unspecified open wound, left thigh, initial encounter; X58.XXXA Exposure to other specified factors, initial encounter; Y92.9 Unspecified place or not applicable; I70.0 Atherosclerosis of aorta; E11.65 Type 2 diabetes mellitus with hyperglycemia; B96.20 Unspecified Escherichia coli [E. coli] as the cause of diseases classified elsewhere; E87.5 Hyperkalemia
CPT/HCPCS: 36415; 70450-TC; 71045-TC; 80048-TC; 80061-TC; 80076-TC; 81000-TC; 82784; 82962-TC; 83605-TC; 83735-TC; 84100-TC; 84443-TC; 84484-TC; 85025-TC; 85730-TC; 87040-TC; 87081-TC; 87086-TC; 87186-TC; 97110-TC; 97116-TC; 97530-TC; A6253; A6403; A6407; G0378; J0696; J1815; J2060; J2543; J3370; J3475; J3490; J7050; J7060; Q0163

== ENCOUNTER 2021-11-28 06:23 | Inpatient (IN) | payer MEDICARE ==
[~2021-11-28] VITALS: Ht 165.1 cm; Wt 56.7 kg
[~2021-11-28 06:23] MED LIST: ASPI81TA44 PO; BISA-79 PO; CIPR-262 PO; DIPH-916 PO; FERR325T23 PO; HYDR-4384 PO; MAGN400T8 PO; METF500S7 PO; MINO100T PO; MYRBETRIQ PO; NITR100C PO; ONE A DAY VITAMIN PO; PREG100C PO; VITAMIN D2 PO
--- NOTE | 2021-11-28 07:07 | NUR ---
[id number] FROM HOME FOR BILATERAL LEG PAIN S/P GLF. DENIES HEAD TRAUMA OR KO. NO GROSS TRAUMA OR DEFORMITY NOTED. AWAKE AND ALERT X3 BREATHING EVEN AND UNLABORED.
--- NOTE | 2021-11-28 07:15 | NUR ---
Recived pt from [facility] pt in ct scan of head
--- NOTE | 2021-11-28 07:19 | NUR ---
PT BROUGHT TO CT DEPT
--- NOTE | 2021-11-28 07:55 | NUR ---
COVID TEST COLLECTED AND SENT
[2021-11-28] MEDS ORDERED: IV NS 0.9% 500 ML BAG IV ONE (08:00)
[2021-11-28] MEDS ORDERED: ONDANSETRON HCL/PF 4 MG/2 ML VIAL IVP ONE (08:00)
[2021-11-28] MEDS ORDERED: FENTANYL PF 100MCG/2ML AMPUL IV ONE (08:00)
[2021-11-28] MEDS ORDERED: ACETAMINOPHEN ES 500 MG TABLET PO ONE (08:00)
[2021-11-28] MEDS ORDERED: ONDANSETRON HCL/PF 4 MG/2 ML VIAL ONE (08:05)
[2021-11-28] MEDS ORDERED: FENTANYL PF 100MCG/2ML AMPUL ONE (08:06)
[2021-11-28] MEDS ORDERED: ACETAMINOPHEN ES 500 MG TABLET ONE (08:06)
[2021-11-28] MEDS ORDERED: CEPH250C PO (08:15)
[2021-11-28] MEDS ORDERED: ZINC220T4 PO (08:15)
[2021-11-28] MEDS ORDERED: SIMV10TA98 PO (08:15)
[2021-11-28] MEDS ORDERED: METO25TA4 PO (08:15)
[2021-11-28] MEDS ORDERED: HYDR-3976 PO (08:15)
[2021-11-28] MEDS ORDERED: LACT1CAP69 PO (08:15)
--- NOTE | 2021-11-28 08:30 | NUR ---
RXAR DONE AT BED SIDE
--- NOTE | 2021-11-28 09:10 | NUR ---
Jad liu in [facility] - 11/28/21 at 0910 by SOFIYA MARSHALL GALAN) [phone]
--- NOTE | 2021-11-28 09:11 | NUR ---
CALLED NURSING SUP REGARDING PT BED
[2021-11-28] MEDS ORDERED: Z GUARD REMEDY 4 OZ OINT TP PRN (09:30)
[2021-11-28] MEDS ORDERED: MAG HYDROX/AL HYDROX/SIMETH 30 ML UDC PO PRN (09:30)
[2021-11-28] MEDS ORDERED: MAGNESIUM HYDROXIDE 30 ML UDC PO PRN (09:30)
[2021-11-28] MEDS ORDERED: ACETAMINOPHEN 325 MG TABLET PO PRN (09:30)
[2021-11-28] MEDS ORDERED: CEFEPIME 1 GM in IV D5W 50 ML IV SCH (09:30)
[2021-11-28] MEDS ORDERED: ONDANSETRON HCL/PF 4 MG/2 ML VIAL IVP PRN (09:30)
[2021-11-28 09:31] LABS: BASOPHILS # (AUTO) 0.1 K/uL (0.0-0.2); BASOPHILS % (AUTO) 0.2 % (0.0-2.0); EOSINOPHILS % (AUTO) 0.3 % (0.0-6.0); HEMATOCRIT 28 % (33-45); HEMOGLOBIN 8.8 g/dL (11.5-14.8); LYMPHOCYTES # (AUTO) 9.6 K/uL (0.8-4.8); LYMPHOCYTES % (AUTO) 33.7 % (20.0-44.0); MEAN CORPUSCULAR HGB CONC 31 g/dl (31.0-36.0); MEAN CORPUSCULAR VOLUME 91 fL (82-100); MONOCYTES % (AUTO) 3.4 % (2.0-12.0); NEUTROPHILS # (AUTO) 17.8 K/uL (1.8-8.9); NEUTROPHILS % (AUTO) 62.4 % (43.0-81.0); PLATELET COUNT (AUTO) 272 K/uL (150-450); RED BLOOD CELL COUNT(AUTO) 3.13 MIL/uL (4.0-5.2); WHITE BLOOD COUNT (AUTO) 28.5 K/uL (4.3-11.0)
[2021-11-28 09:41] LABS: CALCIUM, SERUM 9.2 mg/dL (8.5-10.1); CREATININE 1.3 mg/dL (0.6-1.3); POTASSIUM 5.6 mmol/L (3.5-5.1)
--- NOTE | 2021-11-28 10:06 | NUR ---
ECCHO CARDIO GRAM DONE AT BED SIDE
[2021-11-28] MEDS ORDERED: CEFEPIME 1 GM VIAL ONE (10:08)
[2021-11-28] MEDS: CEFEPIME 2 GM in IV D5W 100 ML IV SCH (10:28)
--- NOTE | 2021-11-28 10:30 | NUR ---
to ct scan
[2021-11-28] MEDS ORDERED: VANCOMYCIN 1.25 GM in IV D5W 250 ML IV ONE (11:00)
--- NOTE | 2021-11-28 11:01 | NUR ---
wating for room
--- NOTE | 2021-11-28 11:18 | NUR ---
going to tele 320.1
--- NOTE | 2021-11-28 11:33 | NUR ---
HAND OFF TO SHWETA RN TO ROOM 320- 1 VIA ALEXA AWAKE AND ALERT
[2021-11-28] MEDS ORDERED: DEXTROSE 50%-WATER 50 ML DISP.SYRIN IVP ONE (12:30)
[2021-11-28] MEDS ORDERED: INSULIN REGULAR, HUMAN 100 UNIT/ML 10 ML VIAL IV ONE (12:30)
--- NOTE | 2021-11-28 13:20 | NUR ---
ms rn received an86 year old female, awake,alert,oriented 4,from er, came in w/ left femur fracture,via gurney,no pain at this time,repositioned for comfort.
[2021-11-28 14:00] VITALS: BP 90/50
--- NOTE | 2021-11-28 14:20 | NUR ---
ms rn was seen by Jessica, reminded her to reconcile meds.
[2021-11-28] MEDS: HYDROCODONE/APAP 5/325MG TABLET PO PRN (14:21)
--- NOTE | 2021-11-28 16:00 | NUR ---
ms rn texted morales again to reconcile meds,
[2021-11-28 16:17] LABS: IRON, SERUM 9 ug/dl (50-175); TOTAL IRON BINDING CAPACITY 139 ug/dl (250-450)
[2021-11-28 16:30] LABS: CHOLESTEROL 115 mg/dL (<200); FERRITIN 561 ng/mL (8-388); HDL CHOLESTEROL 41 mg/dL (40-60); LDL 48 mg/dL (0-99); THYROID STIMULATING HORMONE 0.186 uIU/mL (0.358-3.74); TRIGLYCERIDES 137 mg/dL (30-150)
[2021-11-28] MEDS: IV NS 0.9% 1,000 ML IV SCH ×2 (17:03→22:30)
[2021-11-28] MEDS: MORPHINE SULFATE INJ 2 MG/ML DISP.SYRIN IV PRN (17:39)
--- NOTE | 2021-11-28 18:18 | NUR ---
ms rn on bed, no distress noted, son at bedside.
--- NOTE | 2021-11-28 19:30 | NUR ---
MS RN NOTES RECEIVED LAYING COMFORTABLY ON BED,A/O X4,ABLE TO VERBALIZED NEEDS,ADMITTED FOR LEFT FEMUR FRACTURE FROM FALL,NOTED PURPLISH DISCOLORATION ON BOTH LOWER EXTREMITIES.PRESENT IVF NS AT 75ML/HR RATE INFUSING WELL ON LEFT HAND SALINE VIA IV PUMP.SON AT BEDSIDE.MONITOR FOR PAIN,CALL LIGHT IN REACH,NEEDS ANTICIPATED.
[2021-11-28 20:00] VITALS: BP 109/56
[2021-11-29] VITALS (9 sets, daily range): BP systolic 82–134; BP diastolic 34–73
[2021-11-29] MEDS: HYDROCODONE/APAP 5/325MG TABLET PO PRN (02:05)
--- NOTE | 2021-11-29 02:05 | NUR ---
MS RN NOTES C/O PAIN ON LEFT LEG,MEDICATED WITH NORCO 5/325MG,1 TAB PO ORDERED FOR MODERATE PAIN.NO IV ACCESS THIS TIME,ACCIDENTALLY PULLED OUT BY PATIENT.
--- NOTE | 2021-11-29 04:00 | NUR ---
MS RN NOTES REFUSED VITAL SIGNS THIS TIME.
--- NOTE | 2021-11-29 05:00 | NUR ---
MS RN NOTES NEW SALINE LOCK PLACE ON LEFT FOREARM #22,IVF RE STARTED.
[2021-11-29 06:43] LABS: BASOPHILS % (AUTO) 0.1 % (0.0-2.0); EOSINOPHILS % (AUTO) 0.1 % (0.0-6.0); HEMATOCRIT 21 % (33-45); LYMPHOCYTES # (AUTO) 16.5 K/uL (0.8-4.8); LYMPHOCYTES % (AUTO) 51.8 % (20.0-44.0); MEAN CORPUSCULAR HGB CONC 31 g/dl (31.0-36.0); MEAN CORPUSCULAR VOLUME 91 fL (82-100); MONOCYTES # (AUTO) 1.5 K/uL (0.1-1.30); MONOCYTES % (AUTO) 4.7 % (2.0-12.0); NEUTROPHILS # (AUTO) 13.8 K/uL (1.8-8.9); NEUTROPHILS % (AUTO) 43.3 % (43.0-81.0); PLATELET COUNT (AUTO) 277 K/uL (150-450); RED BLOOD CELL COUNT(AUTO) 2.27 MIL/uL (4.0-5.2)
--- NOTE | 2021-11-29 06:48 | NUR ---
MS RN NOTES FAIRLY RESTED AT NIGHT,REFUSED CARE AT TIMES.PAIN TOLERABLE THRU OUT SHIFT.REFUSED TO BE REPOSITIONED.IN NO ACUTE DISTRESS.
[2021-11-29 07:05] LABS: CALCIUM, SERUM 8.5 mg/dL (8.5-10.1); CARBON DIOXIDE 24 mmol/L (21-32); CHLORIDE 109 mmol/L (98-107); GLUCOSE 190 mg/dL (74-106); MAGNESIUM 1.7 mg/dL (1.8-2.4); PHOSPHORUS 5.3 mg/dL (2.5-4.9); SODIUM SERUM 142 mmol/L (136-145); UREA NITROGEN, BLOOD 58 mg/dL (7-18)
[2021-11-29] MEDS: PANTOPRAZOLE 40 MG TABLET.DR PO SCH (07:45)
--- NOTE | 2021-11-29 07:53 | NUR ---
MS RN OPENING NOTES RECEIVED PATIENT LAYING COMFORTABLY ON BED,A/O X4,ABLE TO VERBALIZED NEEDS IN ESTONIAN AND CHINESE LANGUAGES.LEFT FEMUR FRACTURE FROM FALL,NOTED PURPLISH DISCOLORATION ON BOTH LOWER EXTREMITIES. IV ACCESS ON LFA # 22 INTACT AND RUNNING NS AT 75ML/HR .ALL SAFETY MEASURES IN PLACE. BED LOCKED IN THE LOWEST POSITION. CALL LIGHT AND TABLE IN EASY REACH. SIDE RAILS UP TIMES 2. WILL CONTINUE TO MONITOR.
[2021-11-29 08:25] LABS: HEMOGLOBIN 6.5 g/dL (11.5-14.8); WHITE BLOOD COUNT (AUTO) 31.8 K/uL (4.3-11.0)
[2021-11-29] MEDS ORDERED: Magnesium 1GM/D5W 100ML PREMIX 100 ML IV SCH (09:30)
[2021-11-29] MEDS: MORPHINE SULFATE INJ 2 MG/ML DISP.SYRIN IV PRN (09:42)
[2021-11-29] MEDS ORDERED: IV NS 0.9% 1,000 ML IV ONE (10:00)
[2021-11-29] MEDS: DEXTROSE 50%-WATER 50 ML DISP.SYRIN IVP ONE (10:00)
[2021-11-29] MEDS ORDERED: INSULIN REGULAR, HUMAN 100 UNIT/ML 10 ML VIAL IV ONE (10:00)
[2021-11-29 10:04] LABS: THYROID STIMULATING HORMONE 0.819 uIU/mL (0.358-3.74)
[2021-11-29] MEDS: ENOXAPARIN SODIUM 30 MG/0.3 ML DISP.SYRIN SQ SCH (11:00)
[2021-11-29] MEDS ORDERED: VANCOMYCIN 0.75 GM in IV D5W 250 ML IV SCH (11:00)
[2021-11-29 11:08] LABS: NEUTROPHILS % (MANUAL) 41 (42-76)
[2021-11-29 11:09] LABS: BASOPHILS % (MANUAL) 0 % (0.0-2.0); EOSINOPHILS % (MANUAL) 0 % (0-4); LYMPHOCYTES % (MANUAL) 53 % (16-48); MONOCYTES % (MANUAL) 6 % (0-11.0)
[2021-11-29] MEDS: CEFEPIME 2 GM in IV D5W 100 ML IV SCH (12:26)
[2021-11-29] MEDS ORDERED: DEXTROSE 50%-WATER 50 ML DISP.SYRIN IVP ONE (13:00)
[2021-11-29] MEDS: SOD FERRIC GLUC 125 MG in IV NS 0.9% 100 ML IV SCH (14:55)
--- NOTE | 2021-11-29 17:30 | NUR ---
RN NOTES PATIENT REFUSED TURNING AND MADISON CATHETER FOR URINE COLLECTION.
--- NOTE | 2021-11-29 17:30 | NUR ---
RN NOTES STRAT THE BLOOD TRANSFUSION AT 1730. SINCE THE PATIENT DID NOT HAVE MID LINE. WAITED TO GET MIDLINE. THE SON SIGNED THE BLOOD TRANSFUSION CONSENT. THE END OF THE TRANSFUSION ENDORSED TO THE INCOMING SHIFT.
--- NOTE | 2021-11-29 17:30 | NUR ---
FOR HIGH POTASSIUM CORRECTION IV DEXTROSE AND INSULIN GIVEN. MAGNESIUM REPLACED. I UNIT OF BLOOD GIVEN. ALL NEEDS ATTENDED. WILL CONTINUE TO MONITOR.
--- NOTE | 2021-11-29 19:30 | NUR ---
MS RN OPENING NOTE RECEIVED PT AWAKE IN BED. FAMILY AT BEDSIDE. A/O X3 AND ABLE TO MAKE NEEDS KNOWN. PT STABLE ON ROOM AIR. NO SOB OR S/S OF RESPIRATORY DISTRESS. BREATHING EVEN AND UNLABORED. IV ACCESS VINNY MIDLINE RUNNING 1 BAG PRBC, TOLERATING WELL. SAFETY PRECAUTIONS IN PLACE. BED IN LOWEST LOCKED POSITION, HOB ELEVATED, SIDE RAILS UP X3, AND CALL LIGHT AND TABLE WITHIN REACH. ALL NEEDS MET AT THIS TIME.
--- NOTE | 2021-11-29 21:06 | NUR ---
RN NOTE BLOOD TRANSFUSION COMPLETE AT THIS TIME. VSS. NO ADVERSE REACTION.
[2021-11-29 23:36] LABS: HEMOGLOBIN 7.3 g/dL (11.5-14.8)
[2021-11-30] MEDS: IV NS 0.9% 1,000 ML IV SCH ×3 (03:37→23:34)
--- NOTE | 2021-11-30 06:38 | NUR ---
MS RN CLOSING NOTE PT AWAKE IN BED. FAMILY AT BEDSIDE. A/O X3 AND ABLE TO MAKE NEEDS KNOWN. PT STABLE ON ROOM AIR. NO SOB OR S/S OF RESPIRATORY DISTRESS. BREATHING EVEN AND UNLABORED. IV ACCESS VINNY MIDLINE RUNNING NS @ 100 ML/HR, TOLERATING WELL. WOUND CARE DONE. SAFETY PRECAUTIONS IN PLACE. BED IN LOWEST LOCKED POSITION, HOB ELEVATED, SIDE RAILS UP X3, AND CALL LIGHT AND TABLE WITHIN REACH. ALL NEEDS MET AT THIS TIME AND WILL ENDORSE TO ONCOMING NURSE FOR SANAM.
[2021-11-30 07:01] LABS: BASOPHILS % (AUTO) 0.1 % (0.0-2.0); EOSINOPHILS % (AUTO) 0.2 % (0.0-6.0); HEMATOCRIT 22 % (33-45); HEMOGLOBIN 7.1 g/dL (11.5-14.8); LYMPHOCYTES # (AUTO) 11.8 K/uL (0.8-4.8); LYMPHOCYTES % (AUTO) 45.6 % (20.0-44.0); MEAN CORPUSCULAR HGB CONC 32 g/dl (31.0-36.0); MEAN CORPUSCULAR VOLUME 89 fL (82-100); MONOCYTES # (AUTO) 1.4 K/uL (0.1-1.30); MONOCYTES % (AUTO) 5.2 % (2.0-12.0); NEUTROPHILS # (AUTO) 12.7 K/uL (1.8-8.9); NEUTROPHILS % (AUTO) 48.9 % (43.0-81.0); PLATELET COUNT (AUTO) 238 K/uL (150-450); RED BLOOD CELL COUNT(AUTO) 2.48 MIL/uL (4.0-5.2); WHITE BLOOD COUNT (AUTO) 25.9 K/uL (4.3-11.0)
--- NOTE | 2021-11-30 07:20 | NUR ---
MS RN OPENING NOTE RECEIVED PT AWAKE IN BED. FA/O X3 AND ABLE TO MAKE NEEDS KNOWN. PT STABLE ON ROOM AIR. NO SOB OR S/S OF RESPIRATORY DISTRESS. BREATHING EVEN AND UNLABORED. NO COMPLAIN OF PAIN OR DISCOMFORT AT THIS TIME. IV ACCESS VINNY MIDLINE WITH IVF NS RUNNING AT 100 ML/HR. SAFETY PRECAUTIONS IN PLACE. BED IN LOWEST LOCKED POSITION, HOB ELEVATED, SIDE RAILS UP X3, AND CALL LIGHT AND TABLE WITHIN REACH. WILL CONTINUE WITH PLAN OF CARE.
[2021-11-30 07:28] LABS: BILIRUBIN,TOTAL 0.4 mg/dL (0.2-1.0); CALCIUM, SERUM 8.6 mg/dL (8.5-10.1); CREATININE 1.3 mg/dL (0.6-1.3); MAGNESIUM 1.9 mg/dL (1.8-2.4); PHOSPHORUS 3.9 mg/dL (2.5-4.9); POTASSIUM 4.4 mmol/L (3.5-5.1); TOTAL PROTEIN, SERUM 5.4 g/dL (6.4-8.2)
[2021-11-30 08:06] LABS: IMMUNOGLOBULIN A, SERUM 61 mg/dL (64-422); IMMUNOGLOBULIN G, SERUM 474 mg/dL (586-1602); IMMUNOGLOBULIN M, SERUM 9 mg/dL (26-217)
[2021-11-30] MEDS: PANTOPRAZOLE 40 MG TABLET.DR PO SCH (08:26)
[2021-11-30 08:30] VITALS: BP 136/62
[2021-11-30] MEDS: HYDROCODONE/APAP 5/325MG TABLET PO PRN ×2 (08:45→13:32)
[2021-11-30] MEDS ORDERED: MINOCYCLINE HCL 100 MG PO SCH (09:00)
[2021-11-30] MEDS: ENOXAPARIN SODIUM 30 MG/0.3 ML DISP.SYRIN SQ SCH (09:00)
--- NOTE | 2021-11-30 09:00 | NUR ---
MS RN NOTE PATIETN REFUSING TO BE MOVED FOR WOUND CARE. WILL ASK AGAIN LATER.
[2021-11-30] MEDS: PREGABALIN 100 MG CAPSULE PO SCH ×2 (09:23→17:47)
[2021-11-30] MEDS: MAGNESIUM OXIDE 400 MG TABLET PO SCH (09:23)
[2021-11-30] MEDS: DOXYCYCLINE 100 MG in IV D5W 100 ML IV SCH ×3 (10:47→21:17)
--- NOTE | 2021-11-30 11:00 | NUR ---
MS RN NOTE SEEN BY HERMES EID, NOTIFIED OF LATEST H/H, WILL D/C LOVENOX ORDERED. IN STABLE CONDITION.
[2021-11-30 12:07] LABS: *SPE ALPHA-1-GLOBULIN 0.4 g/dL (0.0-0.4); *SPE ALPHA-2-GLOBULIN 0.9 g/dL (0.4-1.0); *SPE BETA GLOBULIN 0.6 g/dL (0.7-1.3); *SPE M-SPIKE Not Observed g/dL (Not Observed)
[2021-11-30] MEDS: CEFEPIME 2 GM in IV D5W 100 ML IV SCH (12:41)
[2021-11-30] MEDS: MORPHINE SULFATE INJ 2 MG/ML DISP.SYRIN IV PRN (14:07)
--- NOTE | 2021-11-30 14:20 | NUR ---
MS RN NOTE PATIENT STILL REFUSED TO BE MOVED. GIVEN NORCO AND MORPINE FOR DIAPER CHANGE AND WOUND CARE. ONLY ABLE TO DO DIAPER AND BEDDING CHANGE, REFUSED SACRAL WOUND CHANGE NOW, BUT WOUND DRESSING CHANGE IN THE LEFT BUTTOCKS DONE. PATIENT REFERRED TO WOUND CARE NURSE FOR WOUND EVAL AND MANAGEMENT. IN STABLE CONDITION. FAMILY ADN CAREGIVER AT BEDSIDE. PUREWICK PLACED.
[2021-11-30] MEDS: SOD FERRIC GLUC 125 MG in IV NS 0.9% 100 ML IV SCH (14:31)
[2021-11-30 15:54] VITALS: BP 103/75
[2021-11-30] MEDS: SIMVASTATIN 10 MG TABLET PO SCH (17:47)
[2021-11-30] MEDS: METFORMIN 500 MG TABLET PO SCH (17:47)
--- NOTE | 2021-11-30 18:00 | NUR ---
MS RN NOTE DR. MENDENHALL SPOKE WITH PATIENT'S SON ALEXANDER AND PER SON, NO SURGICAL INTERVENTION. WITH ORDER FOR BILATERAL KNEE IMMOBILIZER, LEFT VOICEMAIL TO CENTRAL SUPPLY.
--- NOTE | 2021-11-30 19:00 | NUR ---
MS RN CLOSING NOTE PT AWAKE IN BED. FA/O X3 AND ABLE TO MAKE NEEDS KNOWN. PT STABLE ON ROOM AIR. NO SOB OR S/S OF RESPIRATORY DISTRESS. BREATHING EVEN AND UNLABORED. NO COMPLAIN OF PAIN OR DISCOMFORT AT THIS TIME. IV ACCESS VINNY MIDLINE WITH IVF NS RUNNING AT 100 ML/HR. WITH PUREWICK HOOKED TO SUCTION MACHINE AT LOW PRESSURE. TOOKE OUT 250ML IN THE ENTIRE SHIFT. SAFETY PRECAUTIONS IN PLACE. BED IN LOWEST LOCKED POSITION, HOB ELEVATED, SIDE RAILS UP X3, AND CALL LIGHT AND TABLE WITHIN REACH. WILL CONTINUE WITH PLAN OF CARE.
--- NOTE | 2021-11-30 19:45 | NUR ---
RN OPENING NOTE PATIENT AWAKE IN BED. FAMILY AT BEDSIDE. A/OX3. NO S/S OF DISTRESS, BREATHING WITHOUT DIFFICULTY ON ROOM AIR. VINNY MIDLINE #18 INTACT AND PATENT W/ NS 100ML/HR. SAFETY MEASURES IN PLACE: RAILS UP X2, BED LOCKED AND AT LOWEST POSITION, CALL JOE WITHIN REACH. WILL CONTINUE TO MONITOR PATIENT.
[2021-11-30 20:00] VITALS: BP 116/46
[2021-12-01] MEDS: MORPHINE SULFATE INJ 2 MG/ML DISP.SYRIN IV PRN ×4 (02:34→21:38)
[2021-12-01 05:58] LABS: BASOPHILS % (AUTO) 0.1 % (0.0-2.0); EOSINOPHILS % (AUTO) 1.3 % (0.0-6.0); HEMATOCRIT 22 % (33-45); LYMPHOCYTES # (AUTO) 13.4 K/uL (0.8-4.8); LYMPHOCYTES % (AUTO) 49.5 % (20.0-44.0); MEAN CORPUSCULAR HGB CONC 32 g/dl (31.0-36.0); MEAN CORPUSCULAR VOLUME 90 fL (82-100); MONOCYTES # (AUTO) 1.7 K/uL (0.1-1.30); MONOCYTES % (AUTO) 6.3 % (2.0-12.0); NEUTROPHILS # (AUTO) 11.6 K/uL (1.8-8.9); NEUTROPHILS % (AUTO) 42.8 % (43.0-81.0); PLATELET COUNT (AUTO) 263 K/uL (150-450); RED BLOOD CELL COUNT(AUTO) 2.45 MIL/uL (4.0-5.2); WHITE BLOOD COUNT (AUTO) 27.1 K/uL (4.3-11.0)
--- NOTE | 2021-12-01 06:48 | NUR ---
RN CLOSING NOTE PATIENT ASLEEP IN BED. A/OX3. NO S/S OF DISTRESS, BREATHING WITHOUT DIFFICULT ON ROOM AIR. VINNY MIDLINE #18 INTACT AND PATENT W/ NS 100ML/HR. SAFETY MEASURES IN PLACE: BED AT LOWEST POSITION, AND LOCKED, RAILS UP X2, CALL JOE WITHIN REACH. WILL ENDORSE TO NEXT SHIFT FOR SANAM.
[2021-12-01 07:18] LABS: MAGNESIUM 1.6 mg/dL (1.8-2.4); PHOSPHORUS 2.7 mg/dL (2.5-4.9)
[2021-12-01 08:00] VITALS: BP 126/59
--- NOTE | 2021-12-01 08:06 | NUR ---
MS RN OPENING NOTE Patient in bed, awake. A/O x 3, able to make needs known. On room air, breathing evenly and unlabored. No SOB or s/s of distress noted. IV access on LFA #22 SL, intact and patent and GIOVANNY midline infusing NS at 100 ml/hr. BLE swelling noted, kept elevated. Critical value called from Jasmeet, from lab: Hgb level is 7.0, Dr. Jack notified, no new orders yet. Safety precautions in place: bed in low, locked position; siderails up x 2; call light within reach. Will continue to monitor.
[2021-12-01] MEDS: DOXYCYCLINE 100 MG in IV D5W 100 ML IV SCH (08:55)
[2021-12-01] MEDS: PANTOPRAZOLE 40 MG TABLET.DR PO SCH (08:55)
[2021-12-01] MEDS: GLUCERNA SHAKE 237 ML CAN PO SCH ×2 (08:55→17:14)
[2021-12-01] MEDS: MULTIVITAMINS,THERAGRAN 1 UDTAB TABLET PO SCH (08:56)
[2021-12-01] MEDS: METFORMIN 500 MG TABLET PO SCH ×2 (08:56→17:13)
[2021-12-01] MEDS: PREGABALIN 100 MG CAPSULE PO SCH ×2 (08:56→17:13)
[2021-12-01] MEDS: LACTOBACILLUS RHAMNOSUS GG 1 EACH CAP.SPRINK PO SCH (08:56)
[2021-12-01] MEDS: MAGNESIUM OXIDE 400 MG TABLET PO SCH (08:56)
[2021-12-01] MEDS: ZINC SULFATE 220 MG CAPSULE PO SCH (08:56)
[2021-12-01] MEDS: IV NS 0.9% 1,000 ML IV SCH ×2 (10:40→21:52)
[2021-12-01] MEDS: CEFEPIME 2 GM in IV D5W 100 ML IV SCH (11:03)
--- NOTE | 2021-12-01 11:11 | NUR ---
WOUND CARE CONSULT: PT REFUSED SKIN ASSESSMENT. DR CARLIN NOTIFIED OF SURGICAL CONSULT REQUEST. REVIEWED CHART, NURSING DOCUMENTATION AND PHOTOS WHICHINDICATE LEFT HIP WOUND WITH PACKING, SCARRING/UNEVEN PIGMENTATION TO BUTTOCKS AND SACRAL AREA WELL DISCOLORATION TO LOWER BACK, ALL PRESENT ON ADMISSION. PT IS INCONTINENT OF URINE. RECOMMENDATIONS MADE FOR SKIN PROTECTION. DISCUSSED WITH NURSING STAFF. MD IN AGREEMENT WITH PLAN OF CARE.
[2021-12-01] MEDS ORDERED: DOXYCYCLINE HYCLATE (100 MG) 100 MG TABLET PO SCH (12:30)
[2021-12-01] MEDS: HYDROCODONE/APAP 5/325MG TABLET PO PRN (12:47)
[2021-12-01] MEDS: SOD FERRIC GLUC 125 MG in IV NS 0.9% 100 ML IV SCH (14:13)
[2021-12-01] MEDS: SIMVASTATIN 10 MG TABLET PO SCH (17:14)
--- NOTE | 2021-12-01 19:00 | NUR ---
RN NOTE Kept following up at central supply for stabilizers for both legs, not delivered yet.
--- NOTE | 2021-12-01 19:14 | NUR ---
MS RN CLOSING NOTE Patient in bed, awake. A/O x 3, able to make needs known. Stable on room air, breathing evenly and unlabored. No SOB or s/s of distress noted. GIOVANNY midline infusing NS at 100 ml/hr. BLE swelling noted, kept elevated. All needs attended to. due meds given. Safety precautions in place: bed in low, locked position; siderails up x 2; call light within reach. Will endorse to caustic cresylate shift superintendent nurse for SANAM. Addendum: 12/01/21 at 1943 by VIVIEN ARENAS RN ADD: Purewick in place draining to a yellow colored urine.
--- NOTE | 2021-12-01 19:15 | NUR ---
RN NOTES: RECEIVED AWAKE ON BED, WITH FAMILY PRESENT AT BED SIDE, A/OX2-3 WITH PERIODS OF FORGETFULNESS, ORIENTED TO UNIT AND STAFF,ON ROOM AIR, NO SIGN OF RESPIRATORY DISTRESS, NO PAIN, ON PUREWICK, GIOVANNY MIDLINE WITH IVF OF NS AT 100 ML/HR,HG-7.0, DR. MATTHEWS IS AWARE, CONTINUE TO MONITOR, FOR LABS IN THE MORNING,FAMILY REFUSED FOR SURGERY, PER RN THEY ARE WAITING FOR BLE STABILIZER TO BE DELIVERED FROM [facility].NON WEIGHT BEARING ON BLE.
[2021-12-01 20:00] VITALS: BP 98/45
--- NOTE | 2021-12-01 20:33 | NUR ---
RN NOTES: SHE HAS PERIODS OF CONFUSION ORIENTED TO UNIT THAT SHE IS IN [facility] AND NOT AT HOME, SHE IS AWARE THAT HER PAIN MEDICATION MAKES HER FEEL CONFUSE. NO PAIN AND DISCOMFORT AT THIS TIME, ENCOURAGE TO TAKE A REST AND SLEEP, KEPT CALL LIGHT WITHIN EASY REACH AFTER SHE CALLED AND SPEAK TO HER SON ON THE PHONE.
--- NOTE | 2021-12-01 21:39 | NUR ---
RN NOTES: COMPLAINED OF PAIN 9/10 ON THE BLE, REQUEST FOR HER INJECTION, NON PHARMACOLOGIC INTERVENTION RENDERED, DIM LIT AND SOFT MUSIC ON.
--- NOTE | 2021-12-01 21:52 | NUR ---
RN NOTES: IVF ON NS CONSUMED, NEW BOTTLE OF IVF NS AT 100 ML/HR STARTED. -UNABLE TO SCAN, MANUALLY ENTERED BARCODE, WITNESSED BY ANOTHER RN.
[2021-12-01 22:25] LABS: BILIRUBIN,URINE NEGATIVE (NEGATIVE); COLOR,URINE YELLOW (YELLOW); LEUKOCYTE ESTERASE ,URINE LARGE (NEGATIVE); NITRITE, URINE NEGATIVE (NEGATIVE); PH,URINE 5.5 (5.0-8.0); PROTEIN,URINE 100 mg/dl (NEGATIVE); UGLUCOSE NEGATIVE (NEGATIVE); UROBILINOGEN,URINE 0.2 EU/dL (0.2)
[2021-12-01 22:42] LABS: WBC,URINE TOO NUMEROUS TO COUN /HPF (0-3)
[2021-12-01 22:43] LABS: BACTERIA,URINE MANY /HPF (None Seen); SQUAMOUS EPITHELIAL CELL,UR Few /HPF (None Seen)
[2021-12-02] MEDS: MORPHINE SULFATE INJ 2 MG/ML DISP.SYRIN IV PRN ×4 (05:09→19:51)
--- NOTE | 2021-12-02 05:09 | NUR ---
RN NOTES: -UPON SHE WAKE UP, SHE WAS CALLING FOR THE NURSE, SHE SAID "I HAVE SEVERED PAIN, 10/10 ON MY BOTH LEGS, PLEASE GIVE ME THE INJECTION THAT START WITH LETTER M,I CANNOT REMEMBER THE NAME", RN ALSO TRIED TO OFFER THE ORAL PILL BUT SHE REFUSED SHE PREFER THE INJECTION SHE SAID, GIVEN IMMEDIATELY, SHE WAS GRIMACING IN PAIN. -KEPT CALL LIGHT WITHIN EASY REACH
--- NOTE | 2021-12-02 06:03 | NUR ---
RN NOTES: 2ND IN FLIGHT REFUELING MANAGER CAME, 1ST IN FLIGHT REFUELING MANAGER CANT DRAW BLOOD SHE IS HARD STICK, 2ND ONE SHE REQUESTED TO COME BACK LATER -MORNING CARE DONE, HAD BM, DRESSING CHANGE, BRIEF CHANGE, SHE WAS COOPERATIVE, NOTED UNEVEN EXTREMITIED, NOTED WITH SHORTENING AND DISCOLORATION ON BLE, SHE HAS SWELLING OF THE LEFT KNEE.
--- NOTE | 2021-12-02 07:01 | NUR ---
RN NOTES: AWAKE CALLS ATTENDED, SHE MADE A PHONE CALL TO HIS SON AND HER CAREGIVER, REPOSITIONED ACCORDING TO HER COMFORT, ON PUREWICK URINE OUT PUT 400CC, CALLS ATTENDED,IVF CONTINUE, REPOSITIONED ACCORDING TO HER COMFORT, ENDORSED TO F/U KNEE IMMOBILIZER IN THE CENTRAL SUPPLY THIS MORNING, NO SIGN OF RESPIRATORY DISTRESS,AWAITING FOR BREAKFAST TO BE SERVED. -ENDORSED FOR CONTINUITY OF CARE.
[2021-12-02 08:00] VITALS: BP 138/63
[2021-12-02 09:29] LABS: BASOPHILS % (AUTO) 0.1 % (0.0-2.0); EOSINOPHILS % (AUTO) 0.9 % (0.0-6.0); HEMATOCRIT 21 % (33-45); LYMPHOCYTES % (AUTO) 52.1 % (20.0-44.0); MEAN CORPUSCULAR HGB CONC 32 g/dl (31.0-36.0); MEAN CORPUSCULAR VOLUME 90 fL (82-100); MONOCYTES # (AUTO) 1.8 K/uL (0.1-1.30); MONOCYTES % (AUTO) 5.7 % (2.0-12.0); NEUTROPHILS # (AUTO) 12.7 K/uL (1.8-8.9); NEUTROPHILS % (AUTO) 41.2 % (43.0-81.0); PLATELET COUNT (AUTO) 286 K/uL (150-450); RED BLOOD CELL COUNT(AUTO) 2.31 MIL/uL (4.0-5.2)
[2021-12-02] MEDS: MAGNESIUM OXIDE 400 MG TABLET PO SCH (09:32)
[2021-12-02] MEDS: METFORMIN 500 MG TABLET PO SCH ×2 (09:32→17:12)
[2021-12-02] MEDS: LACTOBACILLUS RHAMNOSUS GG 1 EACH CAP.SPRINK PO SCH (09:32)
[2021-12-02] MEDS: MULTIVITAMINS,THERAGRAN 1 UDTAB TABLET PO SCH (09:32)
[2021-12-02] MEDS: PREGABALIN 100 MG CAPSULE PO SCH ×2 (09:32→17:11)
[2021-12-02] MEDS: ZINC SULFATE 220 MG CAPSULE PO SCH (09:32)
[2021-12-02] MEDS: GLUCERNA SHAKE 237 ML CAN PO SCH ×2 (09:33→17:31)
[2021-12-02] MEDS: PANTOPRAZOLE 40 MG TABLET.DR PO SCH (09:38)
[2021-12-02] MEDS: DOXYCYCLINE HYCLATE (100 MG) 100 MG TABLET PO SCH (09:38)
[2021-12-02 09:50] LABS: CALCIUM, SERUM 8.5 mg/dL (8.5-10.1); CREATININE 0.9 mg/dL (0.6-1.3); POTASSIUM 3.9 mmol/L (3.5-5.1)
[2021-12-02 09:51] LABS: HEMOGLOBIN 6.6 g/dL (11.5-14.8); WHITE BLOOD COUNT (AUTO) 30.8 K/uL (4.3-11.0)
[2021-12-02] MEDS: IV NS 0.9% 1,000 ML IV SCH ×2 (09:52→16:20)
[2021-12-02] MEDS: HYDROCODONE/APAP 5/325MG TABLET PO PRN ×2 (11:00→17:12)
[2021-12-02 12:00] LABS: BAND % (MANUAL) 1 % (0.0-5.0); EOSINOPHILS % (MANUAL) 2 % (0-4); LYMPHOCYTES % (MANUAL) 59 % (16-48); MONOCYTES % (MANUAL) 7 % (0-11.0); NEUTROPHILS % (MANUAL) 31 (42-76)
[2021-12-02] MEDS: SOD FERRIC GLUC 125 MG in IV NS 0.9% 100 ML IV SCH (13:51)
[2021-12-02 16:08] VITALS: BP 122/83
[2021-12-02] MEDS: SIMVASTATIN 10 MG TABLET PO SCH (17:11)
--- NOTE | 2021-12-02 18:31 | NUR ---
RN CLOSING NOTE PATIENT RECEIVED IN BED AND AWAKE. A/O X2-3. REMAINS BEDRIDDEN SHE HAS LEFT- FEMUR FRACTURE. PATIENT REMAINS IN EXCRUCIATING PAIN AND VERY SENSITIVE TO SLIGHTEST MOVEMENT OR TOUCH. PUREWICK URINE SUCTION REMAINS IN PLACE; CHANGED ON SHIFT. MIDLINE IV ACCESS INTACT AND PATENT. COMPLAINED OF PAIN TO AFFECTED AREA; RECEIVED PRN MORPHINE AND NORCO @ SCHEDULED PRN TIMES. MEDICATIONS EFFECTIVE FOR SMALL DURATION. 1 UNIT OF PRBC ORDERED ON SHIFT DUE TO LOW H/H, HOWEVER NOT READY FOR PICK-UP IN LAB UNTIL LATER IN SHIFT. CHARGE NURSE AWARE. WILL ENDORSE TO ONCOMING NURSE. PATIENT ABLE TO VERBALIZE ALL NEEDS . SAFETY MEASURES REMAIN INTACT WITH BED IN LOWEST POSITION AND LOCKED. SIDERAIL UP X2. CALL LIGHT WITHIN REACH WILL CONTINUE TO MONITOR.
--- NOTE | 2021-12-02 19:58 | NUR ---
RN OPENING NOTE PATIENT RECEIVED IN BED AND AWAKE. A/O X2-3. REMAINS BEDRIDDEN SHE HAS LEFT- FEMUR FRACTURE. PATIENT REMAINS IN EXCRUCIATING PAIN AND VERY SENSITIVE TO SLIGHTEST MOVEMENT OR TOUCH. PUREWICK URINE SUCTION REMAINS IN PLACE; CHANGED ON SHIFT. MIDLINE IV ACCESS INTACT AND PATENT. COMPLAINED OF PAIN TO AFFECTED AREA; RECEIVED PRN MORPHINE AT THIS TIME. 1 UNIT OF PRBC ORDERED DUE TO LOW H/H, WILL ADMINISTER. PATIENT ABLE TO VERBALIZE ALL NEEDS . SAFETY MEASURES REMAIN INTACT WITH BED IN LOWEST POSITION AND LOCKED. SIDERAIL UP X2. CALL LIGHT WITHIN REACH WILL CONTINUE TO MONITOR.
[2021-12-02 20:00] VITALS: BP 102/56
--- NOTE | 2021-12-02 21:25 | NUR ---
ms rn notes pt pulled out midline pulled out new iv access in the rac #20g
[2021-12-02 21:53] VITALS: BP 102/56
[2021-12-02 22:08] VITALS: BP 115/60
[2021-12-02 22:46] VITALS: BP 96/70
[2021-12-03 00:49] VITALS: BP 109/49
[2021-12-03 00:50] VITALS: BP 109/49
--- NOTE | 2021-12-03 00:51 | NUR ---
MS RN NOTES PT FINISHED BLOOD TRANSFUSION AT THIS TIME NO ADVERSE REACTIONS. PT ASLEEP IN NO DISTRESS. EASILY WOKEN UP. WILL CONTINUE TO MONITOR. FOR ANY CHANGES.
[2021-12-03] MEDS: IV NS 0.9% 1,000 ML IV SCH ×2 (02:48→13:34)
[2021-12-03] MEDS: MORPHINE SULFATE INJ 2 MG/ML DISP.SYRIN IV PRN ×2 (05:22→14:27)
--- NOTE | 2021-12-03 06:36 | NUR ---
RN CLOSING NOTE PATIENT IN BED AND AWAKE. A/O X2-3. REMAINS BEDRIDDEN SHE HAS LEFT- FEMUR FRACTURE. PATIENT REMAINS IN EXCRUCIATING PAIN AND VERY SENSITIVE TO SLIGHTEST MOVEMENT OR TOUCH. PT REFUSING PURWICK SUCTION AT THIS TIME. IV ACCES SON THE LAC #20G REMAINS IN PLACE. PT S/P BLOOD TRANSFUSION 1PRBC TOLERATED WELL.COMPLAINED OF PAIN TO AFFECTED AREA; RECEIVED PRN MORPHINE NEEDED. PATIENT ABLE TO VERBALIZE ALL NEEDS . SAFETY MEASURES REMAIN INTACT WITH BED IN LOWEST POSITION AND LOCKED. SIDERAIL UP X2. CALL LIGHT WITHIN REACH WILL ENDORSE [place] TO ON COMING NURSE.
[2021-12-03 06:56] LABS: BASOPHILS # (AUTO) 0.1 K/uL (0.0-0.2); BASOPHILS % (AUTO) 0.1 % (0.0-2.0); EOSINOPHILS % (AUTO) 1.1 % (0.0-6.0); HEMATOCRIT 26 % (33-45); HEMOGLOBIN 8.5 g/dL (11.5-14.8); LYMPHOCYTES # (AUTO) 19.2 K/uL (0.8-4.8); MEAN CORPUSCULAR HGB CONC 32 g/dl (31.0-36.0); MEAN CORPUSCULAR VOLUME 90 fL (82-100); MONOCYTES # (AUTO) 1.9 K/uL (0.1-1.30); MONOCYTES % (AUTO) 5.5 % (2.0-12.0); NEUTROPHILS # (AUTO) 12.8 K/uL (1.8-8.9); NEUTROPHILS % (AUTO) 37.3 % (43.0-81.0); PLATELET COUNT (AUTO) 298 K/uL (150-450)
[2021-12-03 07:12] LABS: CALCIUM, SERUM 8.8 mg/dL (8.5-10.1); CREATININE 0.9 mg/dL (0.6-1.3); POTASSIUM 3.9 mmol/L (3.5-5.1)
[2021-12-03 07:18] LABS: WHITE BLOOD COUNT (AUTO) 34.3 K/uL (4.3-11.0)
--- NOTE | 2021-12-03 07:30 | NUR ---
MS RN OPENING NOTE RECEIVED PATIENT IN BED AND SLEEPING. PATIENT IS ALERT AND ORIENTED X2-3.PATIENT IS BEDRIDDEN SHE HAS LEFT FEMUR FRACTURE. IV ACCES ON THE LAC #20G REMAINS IN PLACE.ALL SAFETY MEASURES REMAIN IN PLACE.BED LOCKED IN LOWEST POSITION,SIDE RAILS UP X2.CALL LIGHT WITHIN REACH.WILL CONTINUE TO ASSESS THROUGHOUT SHIFT.
--- NOTE | 2021-12-03 07:48 | NUR ---
CRITICAL LAB WBC 34.3, NOTIFIED [facility]. WILL FOLLOW-UP
--- NOTE | 2021-12-03 07:48 | NUR ---
SPOKE WITH FAMILY MEMBER AND UPDATING PATIENT CONDITION
[2021-12-03 08:00] VITALS: BP_SYST 125; BP_SYST 138; BP_DIAS 60; BP_DIAS 66
[2021-12-03] MEDS: GLUCERNA SHAKE 237 ML CAN PO SCH ×2 (08:28→18:31)
[2021-12-03] MEDS: MULTIVITAMINS,THERAGRAN 1 UDTAB TABLET PO SCH (08:31)
[2021-12-03] MEDS: LACTOBACILLUS RHAMNOSUS GG 1 EACH CAP.SPRINK PO SCH (08:31)
[2021-12-03] MEDS: METFORMIN 500 MG TABLET PO SCH ×2 (08:31→17:40)
[2021-12-03] MEDS: PREGABALIN 100 MG CAPSULE PO SCH ×2 (08:31→17:40)
[2021-12-03] MEDS: MAGNESIUM OXIDE 400 MG TABLET PO SCH (08:31)
[2021-12-03] MEDS: ZINC SULFATE 220 MG CAPSULE PO SCH (08:32)
[2021-12-03] MEDS: PANTOPRAZOLE 40 MG TABLET.DR PO SCH (08:32)
[2021-12-03] MEDS: DOXYCYCLINE HYCLATE (100 MG) 100 MG TABLET PO SCH (08:32)
[2021-12-03] MEDS ORDERED: DOXY100T2 PO (09:17)
[2021-12-03] MEDS: HYDROCODONE/APAP 5/325MG TABLET PO PRN ×2 (10:18→17:52)
--- NOTE | 2021-12-03 12:00 | NUR ---
family at bedside
--- NOTE | 2021-12-03 15:45 | NUR ---
[facility]
[2021-12-03] MEDS: SOD FERRIC GLUC 125 MG in IV NS 0.9% 100 ML IV SCH (15:53)
[2021-12-03 16:47] LABS: EOSINOPHILS % (MANUAL) 1 % (0-4); LYMPHOCYTES % (MANUAL) 34 % (16-48); MONOCYTES % (MANUAL) 2 % (0-11.0); NEUTROPHILS % (MANUAL) 63 (42-76)
[2021-12-03] MEDS: SIMVASTATIN 10 MG TABLET PO SCH (17:40)
--- NOTE | 2021-12-03 18:30 | NUR ---
gave report to ambulance. gave report to [facility] patient discharged
== END 2021-12-03 18:30 | DRG 533 ==
LOC: ER 06:29 → TRANSITION 09:20 → TELE 11:37 → MED 12:11
PROVIDERS: ADMIT Registered Nurse; ATTEND Internal Medicine
PROC: 30233N1 Transfusion of Nonautologous Red Blood Cells into Peripheral Vein, Percutaneous Approach (ICD-10-PCS; principal; 2021-11-29)
PROC: 05HB33Z Insertion of Infusion Device into Right Basilic Vein, Percutaneous Approach (ICD-10-PCS; 2021-11-29)
DX: S72.492A Other fracture of lower end of left femur, initial encounter for closed fracture (principal); N17.0 Acute kidney failure with tubular necrosis; C85.10 Unspecified B-cell lymphoma, unspecified site; N39.0 Urinary tract infection, site not specified; M86.652 Other chronic osteomyelitis, left thigh; C91.10 Chronic lymphocytic leukemia of B-cell type not having achieved remission; E87.5 Hyperkalemia; E86.0 Dehydration; E78.5 Hyperlipidemia, unspecified; Z20.822 Contact with and (suspected) exposure to COVID-19; N18.9 Chronic kidney disease, unspecified; Z79.899 Other long term (current) drug therapy; Z79.82 Long term (current) use of aspirin; R26.9 Unspecified abnormalities of gait and mobility; Z79.84 Long term (current) use of oral hypoglycemic drugs; T84.52XS Infection and inflammatory reaction due to internal left hip prosthesis, sequela; G89.4 Chronic pain syndrome; Y83.1 Surgical operation with implant of artificial internal device as the cause of abnormal reaction of the patient, or of later complication, without mention of misadventure at the time of the procedure; Z74.01 Bed confinement status; Z87.440 Personal history of urinary (tract) infections; E11.69 Type 2 diabetes mellitus with other specified complication; M85.80 Other specified disorders of bone density and structure, unspecified site; M51.37 Other intervertebral disc degeneration, lumbosacral region; M48.061 Spinal stenosis, lumbar region without neurogenic claudication; M47.816 Spondylosis without myelopathy or radiculopathy, lumbar region; E88.09 Other disorders of plasma-protein metabolism, not elsewhere classified; D50.9 Iron deficiency anemia, unspecified; E83.42 Hypomagnesemia; I12.9 Hypertensive chronic kidney disease with stage 1 through stage 4 chronic kidney disease, or unspecified chronic kidney disease; D63.0 Anemia in neoplastic disease; Z87.81 Personal history of (healed) traumatic fracture; E11.22 Type 2 diabetes mellitus with diabetic chronic kidney disease; S31.829A Unspecified open wound of left buttock, initial encounter; X58.XXXA Exposure to other specified factors, initial encounter; Y92.9 Unspecified place or not applicable; Z98.890 Other specified postprocedural states
CPT/HCPCS: 36410; 36415; 70450-TC; 71045-TC; 71250-TC; 72131-TC; 72192-TC; 73502; 73552; 73560-TC; 73564-TC; 73700-TC; 80048-TC; 80053-TC; 80061-TC; 80202-TC; 81001; 82607-TC; 82728-TC; 82784; 82962-TC; 83540-TC; 83735-TC; 84100-TC; 84155; 84165; 84439-TC; 84443-TC; 84484-TC; 85025-TC; 85027-TC; 85652-TC; 85730-TC; 86334; 86850-TC; 87040-TC; 87081-TC; 87086-TC; 93307-TC; 97112-TC; 97530-TC; G0378; J0692; J1815; J2270; J2405; J2916; J3010; J3370; J3475; J3490; J7030; J7050; J7060; P9016